=== PATIENT | female | born 1965 | race Caucasian/White ===

== ENCOUNTER 2017-04-21 17:15 | Emergency (ER) | payer OTHER ==
[2017-04-21 17:29] VITALS: BP 105/65
[2017-04-21] MEDS ORDERED: HYDROmorphone 0.5 MG/0.5 ML Syringe IM ONE (17:59)
[2017-04-21] MEDS ORDERED: Ketorolac 60 MG/2 ML SDV IM ONE (17:59)
[2017-04-21] MEDS ORDERED: Ondansetron 4 MG Tab.DIS PO ONE (17:59)
--- NOTE | 2017-04-21 18:05 | EDM.PDOC ---
ED HPI GENERAL MEDICAL PROBLEM - General Chief Complaint: Upper Extremity Injury/Pain Stated Complaint: R ARM PAIN Time Seen by Provider: 04/21/17 17:45 Source of Information: Reports: Patient History Limitations: Reports: No Limitations - History of Present Illness INITIAL COMMENTS - FREE TEXT/NARRATIVE: Patient is a 51-year-old female presents ED complaining of right arm pain. Patient states pain started one month ago and has been waxing waning in intensity. Unclear etiology of where this discomfort comes from. Patient does have a history of fibromyalgia. States pain radiates from her neck, shoulder, armpit, medial aspect of the upper arm into her elbow. Its a sharp, stabbing sensation, with waxing and waning intensity. Intermittent numbness to her arm. Pain is relieved with stretching arms above her head. She has no history of cervical disc issues, nor injur to right shoulder. She has been evaluated on two separate occasions recently by PCP. Was started on two day course of prednisone. In addition has sores to the back of her neck from excessive itching. She as started on keflex. She denies fever/chills, headache, nausea/ vomiting, chest pain, shortness of breath, weakness, or any additional complaints. Right Arm Pain Score (Numeric/FACES): 10 - Related Data Allergies Allergy/AdvReac Type Severity Reaction Status Date / Time Sulfa (Sulfonamide Allergy Rash Verified 04/21/17 17:29 Antibiotics) Home Meds: Home Meds Acetaminophen/HYDROcodone [[place] 325-5 MG] 1 tab PO Q6H PRN #12 tablet 04/21/17 [Rx] Cephalexin 500 mg PO QID 04/21/17 [History] Ondansetron [Zofran ODT] 4 mg PO Q6H PRN #10 tab.dis 04/21/17 [Rx] Sertraline [Zoloft] 100 mg PO DAILY 04/21/17 [History] atorvaSTATin [Lipitor] 40 mg PO Q48H 04/21/17 [History] Past Medical History Cardiovascular History: Reports: High Cholesterol Musculoskeletal History: Reports: Fibromyalgia Social & Family History - Tobacco Use Smoking Status *Q: Current Every Day Smoker Years of Tobacco use: 30 Packs/Tins Daily: 0.5 - Caffeine Use Caffeine Use: Reports: Coffee - Recreational Drug Use Recreational Drug Use: Yes Drug Use in Last 12 Months: Yes Recreational Drug Type: Reports: Marijuana/Hashish Recreational Drug Use Frequency: Rarely Review of Systems - Review of Systems Review Of Systems: See Below Respiratory: Reports: No Symptoms Cardiovascular: Reports: No Symptoms GI/Abdominal: Reports: No Symptoms Musculoskeletal: Reports: Neck Pain (Right trapezius), Arm Pain (Right arm). Denies: Back Pain Skin: Reports: Pruritis, Rash (Posterior aspect of her neck from excessive itching) Neurological: Reports: Numbness (Intermittent right arm). Denies: Headache, Tingling ED EXAM, GENERAL - Physical Exam Exam: See Below Exam Limited By: No Limitations General Appearance: Alert, WD/WN, Moderate Distress Ears: Hearing Grossly Normal Nose: Normal Inspection Throat/Mouth: Normal Voice, No Airway Compromise Neck: Normal Inspection, Supple, Full Range of Motion, Tender Lateral (Right side), Tender Midline Respiratory/Chest: No Respiratory Distress, Lungs Clear, Normal Breath Sounds, No Accessory Muscle Use, Chest Non-Tender Cardiovascular: Normal Peripheral Pulses, Regular Rate, Rhythm Peripheral Pulses: 2+: Radial (L), Radial (R) Back Exam: Normal Inspection, Full Range of Motion, Other (Skin lesions to the posterior neck from excessive itching. Possible healing. No signs of infection present. She is on Keflex.). No: Vertebral Tenderness Extremities: Normal Inspection, Normal Range of Motion, No Pedal Edema, Normal Capillary Refill, Other (Right arm: Passive and active range of motion intact. No swelling noted to the right arm. No increased warmth. No open sores. Pain with palpation the medial aspect of the arm to the elbow. No strength deficits noted between the left and right upper extremity.) Neurological: Alert, Oriented, CN II-XII Intact, Normal Cognition, No Motor/ Sensory Deficits Psychiatric: Normal Affect, Normal Mood Skin Exam: Warm, Dry, Normal Color Course - Vital Signs Last Recorded V/S: Last Vital Signs Temp 98.4 F 04/21/17 17:23 Pulse 85 04/21/17 17:23 Resp 16 04/21/17 17:23 BP 105/65 04/21/17 17:23 Pulse Ox 100 04/21/17 17:23 - Orders/Labs/Meds Orders: Active Orders 24 hr Category Date Time Status EKG Documentation Completion [RC] STAT Care 04/21/17 18:02 Active Labs: Laboratory Tests 04/21/17 Range/Units 18:00 Urine Opiates Screen Negative (NEGATIVE) Ur Buprenorphine Scrn Negative (NEGATIVE) Ur Oxycodone Screen Negative (NEGATIVE) Urine Methadone Screen Negative (NEGATIVE) Ur Propoxyphene Screen Negative (NEGATIVE) Ur Barbiturates Screen Negative (NEGATIVE) Ur Tricyclics Screen Negative (NEGATIVE) Ur Phencyclidine Scrn Negative (NEGATIVE) Ur Amphetamine Screen Negative (NEGATIVE) U Methamphetamines Scrn Negative (NEGATIVE) U Benzodiazepines Scrn Negative (NEGATIVE) U Cocaine Metab Screen Negative (NEGATIVE) U Marijuana (THC) Screen Presumptive positive H (NEGATIVE) Meds: Medications Discontinued Medications Generic Name Dose Route Start Last Admin Trade Name Freq PRN Reason Stop Dose Admin Hydromorphone HCl 0.5 mg 04/21/17 17:59 04/21/17 18:57 Dilaudid IM 04/21/17 18:00 0.5 mg ONETIME ONE Administration Ketorolac Tromethamine 60 mg 04/21/17 17:59 04/21/17 18:54 Toradol IM 04/21/17 18:00 60 mg ONETIME ONE Administration Ondansetron HCl 4 mg 04/21/17 17:59 04/21/17 18:53 Zofran Odt PO 04/21/17 18:00 4 mg ONETIME ONE Administration - Re-Assessments/Exams Free Text/Narrative Re-Assessment/Exam: The patient has some kind of cervical radiculopathy. In addition she has a history of fibromyalgia. Unclear etiology of pain at this point. Patient admits to utilizing marijuana. Ordered a urine drug tox prior to administering pain medications. In addition will get EKG. For pain ordered Dilaudid 0.5 mg IM, Toradol 60 mg IM, and Zofran 4 mg ODT. EKG: sinus rhythm rate of [address] changes. Urine drug was positive for marijuana. 1939 Reassessment, Patients discomfort has drastically improved with the above therapies. She is wishing to be discharged home. Discharge instructions as documented. Departure - Departure Time of Disposition: 19:44 Disposition: Home, Self-Care 01 Condition: Good Clinical Impression: Pain in right upper arm - Discharge Information Prescriptions: Acetaminophen/HYDROcodone [[place] 325-5 MG] 1 tab PO Q6H PRN #12 tablet PRN Reason: Pain (Severe 7-10) Ondansetron [Zofran ODT] 4 mg PO Q6H PRN #10 tab.dis PRN Reason: Nausea/Vomiting Instructions: Pain Medicine Instructions, [id number] Referrals: Yeni Pak DO [Primary Care Provider] - Forms: ED Department Discharge Additional Instructions: For pain take ibuprofen 600mg every 6 hours and tylenol 650mg every 6 hours in alternating fashion for pain. Utilize warm/cold compresses as needed. Refrain from any activities that cause worsening pain. For severe pain take norco 1 tab po every 6 hrs. Do not take norco and tylenol together. See your PCP this coming Monday and/or Monday for reevaluation. Take all medications with food and plenty of fluids. You may require MRI of the cervical spine. In addition keep appt with PT for evaluation and treatment. No driving this evening nor while taking the norco. Return to the E.D. for any new or worsening symptoms. - My Orders Last 24 Hours: My Active Orders 04/21/17 18:02 EKG Documentation Completion [RC] STAT - Assessment/Plan Last 24 Hours: My Active Orders 04/21/17 18:02 EKG Documentation Completion [RC] STAT
== END 2017-04-21 19:55 | disposition home or self-care (01) ==
LOC: JD.ED 17:15
DX: M79.601 Pain in right arm (principal); E78.00 Pure hypercholesterolemia, unspecified; F17.210 Nicotine dependence, cigarettes, uncomplicated; Z88.2 Allergy status to sulfonamides; Z79.899 Other long term (current) drug therapy
CPT/HCPCS: 80306; 93005; 96372; 99284; A9270; J1170; J1885

== ENCOUNTER 2018-11-26 16:28 | Emergency (ER) | payer BC, OTHER ==
[2018-11-26 16:43] VITALS: BP 111/69
--- NOTE | 2018-11-26 17:48 | EDM.PDOC ---
ED HPI GENERAL MEDICAL PROBLEM - General Chief Complaint: Neck Problem Stated Complaint: [facility] Time Seen by Provider: 11/26/18 16:58 Source of Information: Reports: Patient, RN Notes Reviewed History Limitations: Reports: No Limitations - History of Present Illness INITIAL COMMENTS - FREE TEXT/NARRATIVE: Patient is a 53-year-old female who presents to the ED for the evaluation of a neck mass on her left neck. [facility], however they thought that she should be sent to the ER for further evaluation. The patient states that she is having dental work tomorrow and wanted to make sure she did not need any antibiotics or other for management for the lumps. The patient notes she had recent cervical neck surgery in August and has been wearing a c-collar on and off and going to PT. She states that she first noticed these lumps at the end of October, she notes these lumps to kind of waxed and waned in size. She doesn't state that they are overly tender either. She states that she did have a tonsillectomy when she was a child. She states that she does not have any fever/chills, sore throat, general feelings of malaise, or any dental pain. She states she has had some mild sinus pressure with upper respiratory like symptoms, but nothing that was overly worrisome. This mass is movable, and is only mildly tender. - Related Data Allergies Allergy/AdvReac Type Severity Reaction Status Date / Time latex Allergy Rash Verified 11/26/18 16:44 Sulfa (Sulfonamide Allergy Rash Verified 07/03/18 08:54 Antibiotics) seasonal Allergy Other Uncoded 11/26/18 16:44 Home Meds: Home Meds Sertraline [Zoloft] 100 mg PO DAILY 04/21/17 [History] Pregabalin [Lyrica] 25 mg PO BID 11/26/18 [History] Past Medical History Cardiovascular History: Reports: High Cholesterol Gastrointestinal History: Reports: Irritable Bowel Syndrome Musculoskeletal History: Reports: Fibromyalgia Other Musculoskeletal History: DDD Psychiatric History: Reports: Anxiety, Depression - Past Surgical History HEENT Surgical History: Reports: Tonsillectomy Female Surgical History: Reports: Hysterectomy Social & Family History - Tobacco Use Smoking Status *Q: Current Every Day Smoker Years of Tobacco use: 30 Packs/Tins Daily: 0.5 - Caffeine Use Caffeine Use: Reports: Coffee - Recreational Drug Use Recreational Drug Use: Yes Recreational Drug Type: Reports: Marijuana/Hashish ED ROS GENERAL - Review of Systems Review Of Systems: See Below Constitutional: Denies: Fever, Chills, Malaise, Decreased Appetite, Weight Loss HEENT: Reports: Sinus Problem (mild sinus pressure/congestion), Other (enlarged neck lymph nodes on Left side of neck). Denies: Dental Pain, Ear Pain, Throat Pain, Throat Swelling Respiratory: Reports: No Symptoms Cardiovascular: Reports: No Symptoms Endocrine: Reports: No Symptoms GI/Abdominal: Reports: No Symptoms : Reports: No Symptoms Musculoskeletal: Reports: No Symptoms Skin: Reports: No Symptoms Neurological: Reports: No Symptoms Psychiatric: Reports: No Symptoms Hematologic/Lymphatic: Reports: No Symptoms Immunologic: Reports: No Symptoms ED EXAM, GENERAL - Physical Exam Exam: See Below Exam Limited By: No Limitations General Appearance: Alert, WD/WN, No Apparent Distress Eye Exam: Bilateral Eye: EOMI, Normal Inspection, PERRL Ears: Normal External Exam, Normal Canal, Hearing Grossly Normal, Normal TMs Nose: Normal Inspection, Normal Mucosa, Nasal Swelling (very mild bilateral injected turbinates) Throat/Mouth: Normal Inspection, Normal Lips, Normal Teeth, Normal Gums, Normal Oropharynx, Normal Voice, No Airway Compromise Head: Atraumatic, Normocephalic Neck: Supple, Non-Tender, Full Range of Motion, Lymphadenopathy (L) (4 discrete enlarged, mildly tender lymph nodes (post cervical) these are moveable.), Lymphadenopathy (R) (1-2 discrete palpable lymph nodes to right posterior cervical chain. These are nontender), Tender Lateral (slight tenderness to left side of neck). No: Thyromegaly Respiratory/Chest: No Respiratory Distress, Lungs Clear, Normal Breath Sounds, No Accessory Muscle Use, Chest Non-Tender Cardiovascular: Normal Peripheral Pulses, Regular Rate, Rhythm, No Murmur Extremities: Normal Inspection, Normal Capillary Refill Neurological: Alert, Oriented, Normal Cognition, No Motor/Sensory Deficits Psychiatric: Normal Affect, Normal Mood Skin Exam: Warm, Dry, Intact, Normal Color, No Rash Lymphatic: Adenopathy (as noted in Neck exam.) Course - Vital Signs Last Recorded V/S: Last Vital Signs Temp 97.9 F 11/26/18 16:38 Pulse 61 11/26/18 16:38 Resp 18 11/26/18 16:38 BP 111/69 11/26/18 16:38 Pulse Ox 100 11/26/18 16:38 - Orders/Labs/Meds Orders: Active Orders 24 hr Category Date Time Status CULTURE STREP A CONFIRMATION [RM] Stat Lab 11/26/18 17:39 Results STREP SCRN A RAPID W CULT CONF [RM] Stat Lab 11/26/18 17:39 Results Labs: Laboratory Tests 11/26/18 11/26/18 11/26/18 Range/Units 17:41 17:41 17:41 WBC 10.71 H (3.98-10.04) K/mm3 RBC 4.02 (3.98-5.22) M/mm3 Hgb 12.4 (11.2-15.7) gm/L Hct 38.9 (34.1-44.9) % MCV 96.8 H (79.4-94.8) fl MCH 30.8 (25.6-32.2) pg MCHC 31.9 L (32.2-35.5) g/dl RDW Std Deviation 48.5 H (36.4-46.3) fL Plt Count 315 (182-369) K/mm3 MPV 9.1 L (9.4-12.3) fl Neutrophils % (Manual) 62 H (40-60) % Band Neutrophils % 1 (0-10) % Lymphocytes % (Manual) 33 (20-40) % Atypical Lymphs % 0 % Monocytes % (Manual) 2 (2-10) % Eosinophils % (Manual) 2 (0.7-5.8) % Basophils % (Manual) 0 L (0.1-1.2) Platelet Estimate Adequate Plt Morphology Comment Normal RBC Morph Comment Normal Sodium 141 (136-145) mEq/L Potassium 4.1 (3.5-5.1) mEq/L Chloride 102 (98-107) mEq/L Carbon Dioxide 30 (21-32) mEq/L Anion Gap 13.1 (5-15) BUN 13 (7-18) mg/dL Creatinine 0.8 (0.55-1.02) mg/dL Est Cr Clr Drug Dosing 60.76 mL/min Estimated GFR (MDRD) > 60 (>60) mL/min BUN/Creatinine Ratio 16.3 (14-18) Glucose 81 (74-106) mg/dL Calcium 9.7 (8.5-10.1) mg/dL Total Bilirubin 0.3 (0.2-1.0) mg/dL AST 38 H (15-37) U/L ALT 39 (14-59) U/L Alkaline Phosphatase 107 (46-116) U/L Total Protein 7.7 (6.4-8.2) g/dl Albumin 3.9 (3.4-5.0) g/dl Globulin 3.8 gm/dL Albumin/Globulin Ratio 1.0 (1-2) Monoscreen Negative (NEGATIVE) - Re-Assessments/Exams Free Text/Narrative Re-Assessment/Exam: 11/26/18 17:52 Patient presents to the ED for the evaluation of her left-sided neck lump. The lumps are highly suspicious for inflamed lymph nodes. The left side is somewhat tender, and the right side is not tender at all. The patient has not had any other symptomatic complaints that would lead me to believe that this is a bacterial infection. I did order a strep screen, CBC, CMP, and a head and neck soft tissue ultrasound for further evaluation of what might be the cause of her enlarged lymph nodes. The patient states she does not have a history of lymphoma in the family. 11/26/18 19:05 Patient's lab work is back, and is unremarkable for any sort of bacterial infection at this time. Her strep screen is negative however will send this for culture. The ultrasound results are pending, however the patient is in increased pain due to her neck surgery and is having a small panic attack and is requesting to go home and be called with results. As I have not found any other reason for why her lymph nodes are inflamed at this time I am okay with this and will call her with results of her ultrasound. 11/26/18 20:10 Patient's ultrasound report has returned, there are 4 lymph nodes that are identified. These appear more hypoechoic than usual suggesting edema from inflammatory change. Lymph nodes measure 1.2 cm, 1.1 cm, 1.2 cm in largest lymph node measures 2.4 cm. With this report this may just be from compression due to prolonged c-collar wear, however I will call the patient and tell her if these are still bothersome that she seek further management such as needle aspiration of these lymph nodes. 11/26/18 20:15 I did call the patient's cell phone number as provided per her demographics, she did not answer and I did receive voicemail for which it just rattled off the number, I did leave a voicemail to have her call the ER if she should wish to know the results of her ultrasound done today. I will try to call her again on Tuesday 11/28 when I am at work again. Departure - Departure Time of Disposition: 19:06 Disposition: Home, Self-Care 01 Condition: Fair Clinical Impression: Lymphadenopathy of head and neck - Discharge Information *PRESCRIPTION DRUG MONITORING PROGRAM REVIEWED*: No *COPY OF PRESCRIPTION DRUG MONITORING REPORT IN PATIENT RADHA: No Instructions: Lymphadenopathy Referrals: Angy Judge MD [Primary Care Provider] - Forms: ED Department Discharge Additional Instructions: You have been evaluated in the ED today for the lump on your left sided neck. Your labs were not remarkable for any sort of bacterial infection at this time. Your ultrasound was done, however the results are pending you will be called with results of her ultrasound. You may proceed with your dental procedures tomorrow as scheduled. Please return to the ED if her symptoms change or worsen. - My Orders Last 24 Hours: My Active Orders 11/26/18 17:39 CULTURE STREP A CONFIRMATION [RM] Stat STREP SCRN A RAPID W CULT CONF [RM] Stat - Assessment/Plan Last 24 Hours: My Active Orders 11/26/18 17:39 CULTURE STREP A CONFIRMATION [RM] Stat STREP SCRN A RAPID W CULT CONF [RM] Stat
--- NOTE | 2018-11-26 19:38 | US ---
Left neck ultrasound: Multiple real-time images were obtained of the left neck. 4 lymph nodes are identified. These appear more hypoechoic than usual suggesting edema from inflammatory change. Lymph nodes measure 1.2 cm, 1.1 cm, 1.2 cm and largest lymph node measures 2.4 cm. Impression: 1. Lymph nodes as noted above. Diagnostic code #3
== END 2018-11-26 19:10 | disposition home or self-care (01) ==
LOC: JD.ED 16:28
DX: R59.0 Localized enlarged lymph nodes (principal); E78.00 Pure hypercholesterolemia, unspecified; F41.9 Anxiety disorder, unspecified; F32.9 Major depressive disorder, single episode, unspecified; F17.210 Nicotine dependence, cigarettes, uncomplicated; Z88.2 Allergy status to sulfonamides; Z91.040 Latex allergy status
CPT/HCPCS: 36415; 76536; 76536-26; 80053; 85007; 85027; 86308; 87081; 87430; 99284-25

== ENCOUNTER 2020-03-26 06:51 | Emergency (ER) | payer BC, OTHER ==
[2020-03-26] MEDS ORDERED: Ondansetron 4 MG/2 ML SDV IVPUSH ONE (07:13)
[2020-03-26] MEDS ORDERED: HYDROmorphone 0.5 MG/0.5 ML Syringe IVPUSH ONE (07:13)
[2020-03-26] MEDS ORDERED: Dextrose 5%-Lactated Ringers 1,000 ML IV SCH (07:15)
--- NOTE | 2020-03-26 07:19 | EDM.PDOC ---
ED HPI GENERAL MEDICAL PROBLEM - General Chief Complaint: Abdominal Pain Stated Complaint: ABDOMINAL PAINS,DRY HEAVES AND CHEST PAIN Time Seen by Provider: 03/26/20 07:10 Source of Information: Reports: Patient History Limitations: Reports: No Limitations - History of Present Illness INITIAL COMMENTS - FREE TEXT/NARRATIVE: 54-year-old female presents to the ED after awakening from sleep with acute onset of abdominal cramping pain and dry heaves. She states she is dry heaves yellow bilious material. She then began to have diarrhea and has had 4-5 loose watery stools per rectum without blood. Associated chills but no fever. She was fine when she went to bed. She did eat chicken nuggets at [employer] yesterday p.m. Possibility of foodborne illness exist. No one else she knows is ill. Previous abdominal surgeries that of a hysterectomy and retension of her ovaries. At the time she was seen she is hyperventilating and lying in the left lateral decubitus position. Onset: Today, Sudden Onset Date: 03/26/20 Onset Time: 06:00 Duration: Minutes:, Waxing/Waning Location: Reports: Abdomen (Upper epic epigastric abdominal pain with intermittent lower abdominal cramping pain with diarrhea.), Radiates to (Radiates up to her mid back.) Quality: Reports: Ache, Sharp, Stabbing Severity: Moderate Improves with: Reports: None Worsens with: Reports: None Context: Reports: Other (Continuous occurrence. Possible foodborne illness.). Denies: Activity, Exercise, Lifting, Sick Contact, Trauma Associated Symptoms: Reports: Fever/Chills, Loss of Appetite, Malaise, Nausea/Vomiting (Actable nausea), Other (Yellow watery diarrhea x4 so far this morning). Denies: Confusion, Chest Pain, Cough, cough w sputum, Diaphoresis (Chills but no fever), Headaches, Rash, Seizure ( with dry heaves.), Shortness of Breath, Syncope Treatments [employer]: Reports: Other (see below) Middle Abdominal Pain Score (Numeric/FACES): 10 - Related Data Allergies Allergy/AdvReac Type Severity Reaction Status Date / Time latex Allergy Rash Verified 03/26/20 07:13 Sulfa (Sulfonamide Allergy Rash Verified 03/26/20 07:13 Antibiotics) seasonal Allergy Other Uncoded 11/26/18 16:44 Home Meds: Home Meds Sertraline [Zoloft] 100 mg PO DAILY 04/21/17 [History] Ciprofloxacin HCl [Cipro] 500 mg PO BID #10 tablet 03/26/20 [Rx] Dicyclomine [Bentyl] 20 mg PO Q6H PRN #5 tablet 03/26/20 [Rx] Levocetirizine Dihydrochloride [Xyzal] 5 mg pe PO DAILY 03/26/20 [History] Ondansetron [Zofran] 4 mg BUCCAL Q6H PRN #5 tab 03/26/20 [Rx] Past Medical History Cardiovascular History: Reports: High Cholesterol Gastrointestinal History: Reports: Irritable Bowel Syndrome Musculoskeletal History: Reports: Fibromyalgia Other Musculoskeletal History: DDD Psychiatric History: Reports: Anxiety, Depression - Past Surgical History HEENT Surgical History: Reports: Tonsillectomy Female Surgical History: Reports: Hysterectomy Social & Family History - Caffeine Use Caffeine Use: Reports: Coffee ED ROS GENERAL - Review of Systems Review Of Systems: See Below Constitutional: Reports: Chills, Malaise, Weakness, Fatigue, Decreased Appetite. Denies: Fever HEENT: Reports: No Symptoms Respiratory: Reports: No Symptoms Cardiovascular: Reports: No Symptoms Endocrine: Reports: Fatigue GI/Abdominal: Reports: Abdominal Pain, Diarrhea (Currently having abdominal pain with associated diarrhea and vomiting), Nausea, Vomiting : Reports: No Symptoms Musculoskeletal: Reports: Other (Chronic lower extremity pain) Skin: Reports: No Symptoms ( i.e. neuropathy.) Neurological: Reports: Paresthesia (Both lower extremities.) Psychiatric: Reports: Anxiety ED EXAM, GI/ABD - Physical Exam Exam: See Below Exam Limited By: No Limitations General Appearance: Alert, WD/WN, Moderate Distress, Other (Temperature is 36.1 pulse is 64 respiratory is 20 with O2 sats of 99% room air BP markedly elevated 189 142 not felt to be correct.) Eyes: Bilateral: Normal Appearance (No blepharal pallor or scleral icterus.) Throat/Mouth: Other Head: Atraumatic (Tongue is mildly dry and coated.), Normocephalic Neck: Normal Inspection, Supple, Non-Tender, Full Range of Motion. No: Lymphadenopathy (L), Lymphadenopathy (R) Respiratory/Chest: Lungs Clear, Normal Breath Sounds (Hyperventilating with tachypnea at 20/min.), No Accessory Muscle Use, Chest Non-Tender, Respiratory Distress Cardiovascular: Normal Peripheral Pulses, Regular Rate, Rhythm, No Edema, No Murmur, No Rub GI/Abdominal Exam: No Organomegaly, No Distention, No Abnormal Bruit, No Mass, Pelvis Stable, Tender (Tenderness in the epigastrium with some mild diastases recti evident.), Abnormal Bowel Sounds (Bowel sounds are fairly quiesced sent in all 4 quadrants at this time.) Back Exam: Normal Inspection. No: CVA Tenderness (L), CVA Tenderness (R) Extremities: Normal Inspection, Normal Range of Motion, Non-Tender, No Pedal Edema Neurological: Alert, Oriented, CN II-XII Intact, Normal Cognition Psychiatric: Normal Affect, Normal Mood Skin Exam: Warm, Dry, Intact, Normal Color, No Rash Course - Vital Signs Last Recorded V/S: Last Vital Signs Temp 36.1 C 03/26/20 07:02 Pulse 56 L 03/26/20 08:39 Resp 16 03/26/20 08:39 BP 112/73 03/26/20 08:39 Pulse Ox 96 03/26/20 08:39 - Orders/Labs/Meds Orders: Active Orders 24 hr Category Date Time Status Dextrose 5%-Lactated Ringers 1,000 ml Med 03/26/20 07:15 Active IV ASDIRECTED Medication Orders Dextrose/Lactated Ringer's (Dextrose 5%-Lactated Ringers) 1,000 mls @ 999 mls/hr IV ASDIRECTED MARK ANTHONY Last Admin: 03/26/20 07:22 Dose: 999 mls/hr Documented by: GEORGIE Labs: Laboratory Tests 03/26/20 03/26/20 Range/Units 07:22 07:22 WBC 13.19 H (3.98-10.04) K/mm3 RBC 4.18 (3.98-5.22) M/mm3 Hgb 13.1 (11.2-15.7) gm/dl Hct 40.2 (34.1-44.9) % MCV 96.2 H (79.4-94.8) fl MCH 31.3 (25.6-32.2) pg MCHC 32.6 (32.2-35.5) g/dl RDW Std Deviation 46.2 (36.4-46.3) fL Plt Count 382 H (182-369) K/mm3 MPV 9.0 L (9.4-12.3) fl Neut % (Auto) 78.5 H (34.0-71.1) % Lymph % (Auto) 14.9 L (19.3-51.7) % Hemphill % (Auto) 5.2 (4.7-12.5) % Eos % (Auto) 0.8 (0.7-5.8) Baso % (Auto) 0.4 (0.1-1.2) % Neut # (Auto) 10.36 H (1.56-6.13) K/mm3 Lymph # (Auto) 1.97 (1.18-3.74) K/mm3 Hemphill # (Auto) 0.68 H (0.24-0.36) K/mm3 Eos # (Auto) 0.10 (0.04-0.36) K/mm3 Baso # (Auto) 0.05 (0.01-0.08) K/mm3 Manual Slide Review Normal smear Sodium 138 (136-145) mEq/L Potassium 3.5 (3.5-5.1) mEq/L Chloride 103 (98-107) mEq/L Carbon Dioxide 22 (21-32) mEq/L Anion Gap 16.5 H (5-15) BUN 14 (7-18) mg/dL Creatinine 0.8 (0.55-1.02) mg/dL Est Cr Clr Drug Dosing 60.67 mL/min Estimated GFR (MDRD) > 60 (>60) mL/min BUN/Creatinine Ratio 17.5 (14-18) Glucose 120 H (74-106) mg/dL Calcium 9.1 (8.5-10.1) mg/dL Total Bilirubin 0.2 (0.2-1.0) mg/dL AST 38 H (15-37) U/L ALT 32 (14-59) U/L Alkaline Phosphatase 111 (46-116) U/L C-Reactive Protein 0.9 (<1.0) mg/dL Total Protein 7.5 (6.4-8.2) g/dl Albumin 3.6 (3.4-5.0) g/dl Globulin 3.9 gm/dL Albumin/Globulin Ratio 0.9 L (1-2) Lipase 120 (73-393) U/L Meds: Medications Generic Name Dose Route Start Last Admin Trade Name Alyce PRN Reason Stop Dose Admin Dextrose/Lactated Ringer's 1,000 mls @ 999 mls/hr 03/26/20 07:15 03/26/20 07:22 Dextrose 5%-Lactated Ringers IV 999 mls/hr ASDIRECTED MARK ANTHONY Administration Discontinued Medications Generic Name Dose Route Start Last Admin Trade Name Alyce PRN Reason Stop Dose Admin Dicyclomine HCl 20 mg 03/26/20 08:29 03/26/20 08:38 Bentyl PO 03/26/20 08:30 20 mg ONETIME ONE Administration Hydromorphone HCl 0.5 mg 03/26/20 07:13 03/26/20 07:23 Dilaudid IVPUSH 03/26/20 07:14 0.5 mg ONETIME ONE Administration Levofloxacin 500 mg 03/26/20 08:29 03/26/20 08:38 Levaquin PO 03/26/20 08:30 500 mg ONETIME ONE Administration Ondansetron HCl 4 mg 03/26/20 07:13 03/26/20 07:22 Zofran IVPUSH 03/26/20 07:14 4 mg ONETIME ONE Administration - Radiology Interpretation Free Text/Narrative:: 54-year-old female presents to the ED with acute onset of diffuse upper and lower abdominal pain. Dry heaves with some burning and pressure discomfort in the pit of her stomach and associated development of loose yellow watery diarrhea x4 since 0600 hrs. this morning. Pain awoke her from sleep. She did eat out at [employer] last evening and had chicken McNuggets. Therefore there is a possibility of foodborne illness. And D5 LR at open. Zofran 4 mg IV for nausea Dilaudid 0.5 mg IV for pain relief. Routine labs to be performed inclu ding a serum lipase. - Re-Assessments/Exams Free Text/Narrative Re-Assessment/Exam: 03/26/20 08:26 White count is elevated at 13.19. Auto differential shows 78.5% neutrophils. Hemoglobin is 13.1 MCV slightly elevated at 96.2. Platelet count 382,000 slightly elevated. Manual slide shows normal smear. Sodium is 138 with a potassium low normal at 3.5. Chloride 103 with a bicarb of 22. Anion gap is 16.5. BUN is 14 with a creatinine of 0.8. Glucose 120 with a calcium of 9.1. Bilirubin is 0.2 AST is mildly elevated at 38. A ALT is normal at 32. Alk phosphatase is 111 C-reactive protein is 0.9 total protein 7.5 with an albumin fraction of 3.6. Lipase is normal at 120. Patient is feeling much improved. No further nausea no further diarrhea or cramping. I am going to give her Bentyl 20 mg p.o. to help reduce further cramping. Levaquin 500 mg now. Plan will be to discharge her on Cipro 500 mg twice daily for 5 more days and Bentyl 20 mg every 6 hours for diarrhea/abdominal cramping pain relief x8 tablets and Zofran 4 mg sublingual every 4-6 hours as needed for nausea and vomiting 03/26/20 09:14 patient has completed a full liter of IV fluids. She feels much improved. She will therefore be discharged to home. She never did produce a stool sample for analysis. She will be treated with above medications as planned. Follow-up in 48 hours if not markedly improved Departure - Departure Time of Disposition: 09:05 Disposition: Home, Self-Care 01 Condition: Fair Clinical Impression: Foodborne gastroenteritis - Discharge Information *PRESCRIPTION DRUG MONITORING PROGRAM REVIEWED*: Not Applicable *COPY OF PRESCRIPTION DRUG MONITORING REPORT IN PATIENT RADHA: Not Applicable Prescriptions: Dicyclomine [Bentyl] 20 mg PO Q6H PRN #5 tablet PRN Reason: Abdominal cramps/diarrhea Ciprofloxacin HCl [Cipro] 500 mg PO BID #10 tablet Ondansetron [Zofran] 4 mg BUCCAL Q6H PRN #5 tab PRN Reason: nausea or vomiting Instructions: Food Poisoning, [id number] Referrals: Angy Judge MD [Primary Care Provider] - Forms: ED Department Discharge Additional Instructions: Evaluation in the emergency room this morning in regards to acute onset of diffuse upper abdominal pain associate with dry heaves and then lower abdominal cramping pain and yellow watery diarrhea. This is most likely foodborne illness since lab test revealed an elevated white count and the aggressiveness of the diarrhea suggest a non-viral source. You were treated with a liter of IV fluids and given medication Dilaudid 0.5 mg IV and Zofran 4 mg IV for nausea and abdominal pain relief. Later you were given Bentyl 20 mg by mouth for relief of abdominal cramping pain and initial dose of antibiotic Levaquin 500 mg. You may use Bentyl 20 mg by mouth every 6 hours to relieve abdominal cramping pain or diarrhea next dose would be due around 230 this afternoon. Zofran may be taken under the tongue every 4 hours as necessary for relief of any nausea or vomiting. Antibiotic Cipro 500 mg twice daily for the next 5 days with the first dose to be taken at bedtime tonight. Expect marked improvement in the next 36 to 48 hours. Diet should be clear fluids primarily Gatorade or Powerade sipped on today. Ideally 5 ounces per hour. When hungry try soda crackers first then plain bread with jam on it etc. May advance to soup broth such as turkey rice chicken noodle etc. Avoid all dairy products and no apple juice or grape juice until stools are formed back up. Advance diet slowly to low-fat high-protein high carbohydrate diet. Return to medical care if not markedly improved in 48 hours time Sepsis Event Note (ED) - Evaluation Sepsis Screening Result: No Definite Risk - Focused Exam Vital Signs: Vital Signs Temp Pulse Resp BP Pulse Ox 03/26/20 08:39 56 L 16 112/73 96 03/26/20 07:42 58 L 18 158/97 H 93 L 03/26/20 07:02 36.1 C 64 20 189/142 H 99 - My Orders Last 24 Hours: My Active Orders 03/26/20 07:15 Dextrose 5%-Lactated Ringers 1,000 ml IV ASDIRECTED - Assessment/Plan Last 24 Hours: My Active Orders 03/26/20 07:15 Dextrose 5%-Lactated Ringers 1,000 ml IV ASDIRECTED
[2020-03-26] MEDS ORDERED: Dicyclomine 10 MG Cap PO ONE (08:29)
[2020-03-26] MEDS ORDERED: Levofloxacin 250 MG Tab PO ONE (08:29)
[2020-03-26 08:40] VITALS: BP 112/73; PULSE 56
== END 2020-03-26 09:17 | disposition home or self-care (01) ==
LOC: JD.ED 06:51
DX: A05.9 Bacterial foodborne intoxication, unspecified (principal); F41.9 Anxiety disorder, unspecified; F32.9 Major depressive disorder, single episode, unspecified; Z88.2 Allergy status to sulfonamides; Z91.040 Latex allergy status; Z79.899 Other long term (current) drug therapy
CPT/HCPCS: 36415; 80053; 83690; 85025; 86140; 96361; 96374; 96375; 99284; A9270; J1170; J2405; J7121; 99283